=== PATIENT | male | born 1980 | race Caucasian/White ===

== ENCOUNTER 2021-04-30 13:00 | Outpatient (CLI) | payer OTHER ==
--- NOTE | 2021-04-30 21:25 | SLEEP CARE CONSULTATION ---
Information from patient questionnaire entered by Halley Maloney MA. I have reviewed and concur with the information entered by Halley Maloney MA. This document represents the service I personally performed and the decisions made by me, Azucena Steel MD, [facility]. History of Present Illness Service Date and Time: 04/30/2021 1300 Reason for Visit: New patient (ONSET 03/2019, NO PRIORS,) Chief Complaint: reports: Unrefreshed sleep, Snoring, Observed pauses in breathing, Fatigue, Frequent awakenings at night, Other Date of Onset: SEVERAL YEARS Usual bedtime: 900 PM Time it takes to fall asleep: 30 60 MINUTES Snores at night: Yes Observed to quit breathing while asleep: Yes Sleeps alone due to snoring: Yes (SOMETIMES) Number of times waking at night: 3-5 TIMES Reasons for waking at night: reports: Pain, Bathroom, Other Toss, Turn, or Twitch while sleeping: Yes Recalls having dreams: No Usually gets out of bed at: [id number] Feels refreshed in the morning: No Morning headache: Yes (MID MORNING) Sleepy or fatigued during the day: Yes Ever fallen asleep while driving: No Takes day naps: No Dreams during day naps: No Prior sleep studies: No Additional HPI information: I had the pleasure of seeing Mr. Saleh today regarding the possibility of him having a sleep disorder. As you know, he is a 40-year-old gentleman who complains of loud snore, observed apneas, unrefreshed sleep, frequent awakenings, and persistent fatigue for the past several years. The patient tells me that he normally goes to bed around 9 pm, and it takes him approximately 30 - 60 minutes to fall asleep. He has been told that he snores loudly and irregularly at night. He has also been observed to stop breathing in his sleep. His occasionally has to sleep in a separate room. He can re call waking up on the average of 4 - 5 times during the night. Most of the time he wakes up because of having to use the bathroom and pain. He has awakened occasionally because of his own snoring, choking, and having to gasp for air. There is a lot of tossing and turning in his sleep. No somniloquy (sleep talking) or somnambulism (sleep walking). Generally, there is no recollection of dreams. In the morning he usually gets up out of the bed around 4 - 5 a.m. not feeling refreshed nor rested. He usually does have a morning headache that goes away by mid-morning. During the day he complains of feeling sleepy and fatigued. His score on [place] Sleepiness Scale is 4 out of 24. He never has fallen asleep while driving nor has had any accident due to sleepiness. He usually does not take naps during the day. Upon falling asleep during the day he denies having vivid dreams. He has never had sleep paralysis, experienced cataplexy or symptoms of restless leg syndrome. He denies having impaired concentration during the day. - Parasomnia Symptoms Ever been unable to move upon waking from sleep: No Walks in sleep: No Talks in sleep: No Ever acted out dreams in sleep: No Ever felt weak in the knees when startled or emotional: No Bothered by creepy, crawly, restless sensations in legs: No Problems with memory or concentration: No Subjective Initial [place] Sleepiness Scale score: 4 (2021) Past Medical History Past Medical History: reports: Hypertension Social History The patient's occupation is a [employer]. Patient is and lives in [place]. Have you smoked in the past 12 months: Yes Cigarettes per day (20/pack): 6 Years of smokin Smoking Pack Years: 5.7 Alcohol use: Yes Alcohol amount and frequency: 3-4 X WEEKLY Caffeine use: Yes Caffeine amount and frequency: 1 X DAILY Family History Family history of sleep disordered breathing: Yes Family Hx Sleep Apnea: Mother: Snoring, Sleep apnea - Untreated Allergies and Home Medications Known drug allergies: No Drug allergies reviewed: Yes Home medication list reviewed: Yes Allergy and home medication list: Allergies No Known Drug Allergies Allergy (Verified 10/26/14 16:29) Review of Systems Cardiovascular: reports: high blood pressure Respiratory: denies: shortness of breath, wheeze, sputum production, chronic cough, other Gastrointestinal: denies: heartburn, difficulty swallowing, nausea, vomitting, diarrhea, abdominal pain, other Urinary: denies: incontinence, frequency, urgency, impotence, other Neurological: reports: headaches Psychiatric: denies: Attention Deficit Hyperactivity, anxiety, depression, mood disorder, claustrophobia, other Ear/Nose/Throat: reports: dry mouth/throat Endocrine: denies: thyroid disease, history of goiter, sluggishness, too hot or cold, excessive thirst, increased appetite, increased urination, unexplained weakness, other Musculoskeletal: reports: joint pain Immunologic: denies: sneezing, rash, itching, allergies to food or environment, other Physical Exam Vital signs obtained and entered by: Jonatan MALONEY CMA [facility] Blood Pressure: 133/75 (RIGHT, PULSE 78, RESP 16,) Cuff size: wrist Heart Rate: 80 (BEING MONITORED FOR HYPERTENSION.) O2 Saturation: 98 (WITH CLOTH MASK) Height: 6 ft 1 in Weight: 279 lb Body Mass Index: 36.8 BMI Classification: Obese Mood/affect: normal HEENT: No craniofacial malformation Nostrils: patent to airflow Turbinates: normal Septum: midline Mouth and throat: narrow oropharynx Soft palate: long Hard palate: normal Uvula: normal Uvula visualization: 50% Mallampati Class II Tongue: enlarged in size with teeth brown on lateral edges Tonsils: small Chin and jaw: normal size and position Neck: normal w/o lymphadenopathy or thyromegaly Impression and Plan IMPRESSION: 1. Obstructive Sleep Apnea-Hypopnea Syndrome, as suggested by history of loud and irregular snoring, observed cessation of breath while asleep, frequent awakenings during the night, unrefreshed sleep, morning headache, and daytime hypersomnolence. Narrow oropharynx and obesity are common predisposing factors for obstructive sleep apnea-hypopnea syndrome. Untreated obstructive sleep apnea can also cause hypertension. I recommend proceeding to polysomnography to confirm the diagnosis and to assess severity. If he has significant sleep disordered breathing, a manual CPAP titration study will also be performed to find the optimal treatment pressure. I informed the patient of what the sleep studies involve and after some discussion, he agreed to proceed. Plan: 1. Schedule polysomnography + manual CPAP titration study and return in 1 to 2 weeks after the study to discuss result and initiate therapy. 2. Avoid long distance driving or when feeling sleepy. 3. Avoid alcohol, sedative and muscle relaxant around bedtime. 4. Attempt to lose weight. Follow up with Sleep Care in: 1-2 months Visit Type: In Office Time Spent with Patient (minutes): 15 Provider Statement: I spent 100% of the Face to Face Visit with the patient with greater than 50% spent counseling the patient and coordination of care.
[2021-04-30 21:26] VITALS: BP 133/75
== END 2021-04-30 13:01 | disposition home or self-care (01) ==
LOC: SC 13:00
PROVIDERS: ATTEND Internal Medicine Pulmonary Disease
DX: R06.83 Snoring (principal); G47.8 Other sleep disorders; R51.9 Headache, unspecified; G47.10 Hypersomnia, unspecified; R06.81 Apnea, not elsewhere classified; R41.89 Other symptoms and signs involving cognitive functions and awareness; E66.9 Obesity, unspecified; Z68.36 Body mass index [BMI] 36.0-36.9, adult
CPT/HCPCS: 99202; 99212

== ENCOUNTER 2021-05-09 12:21 | Outpatient (CLI) | payer OTHER | END 2021-05-09 12:22 | disposition home or self-care (01) | LOC: SC 12:21 | PROVIDERS: ATTEND Nurse Practitioner Family | DX: G47.33 Obstructive sleep apnea (adult) (pediatric) (principal); R09.02 Hypoxemia | CPT/HCPCS: 95806 ==

== ENCOUNTER 2021-05-21 13:02 | Outpatient (CLI) | payer OTHER ==
[2021-05-21 13:45] VITALS: BP 129/74
--- NOTE | 2021-05-21 13:45 | SLEEP CARE CONSULTATION ---
Information from patient questionnaire entered by Halley Stern MA. I have reviewed and concur with the information entered by Halley Stern MA. This document represents the service I personally performed and the decisions made by me, Azucena Steel MD, [facility]. History of Present Illness Service Date and Time: 05/21/2021 1302 Initial [place] Sleepiness Scale score: 4 (2021) Current [place] Sleepiness Scale score: 8 (2021) Additional HPI information: HPI: Mr. Sheriff returned for follow up of the sleep study he had on 05/09/2021. The polysomnography showed that mild obstructive sleep apnea-hypopnea, with an AHI of 9.6/hr and gonzalez SaO2 of 79%. During the study, the patient had 18 apneas (18 obstructive, 0 central, 0 mixed) and 57 hypopneas. The longest episode lasted 135.0 seconds. The patient did not sleep supine during this study (supine AHI was 0.0 and non-supine, 9.63). Hypoxemia was moderate, with the lowest oxygen saturation of 79 % and 138.6 minutes with SaO2 under 90%. Baseline oxygen saturation was normal (Average oxygen saturation was 91%). The patient was informed of these findings. I explained to him the pathophysiology behind obstructive sleep apnea. We then spent quite a bit of time discussing different treatment options. For mild obstructive sleep apnea, surgery and oral appliance are alternatives to nasal CPAP therapy but in moderate or severe cases, nasal CPAP is the most effective and reliable treatment. Weight loss in an obese individual is strongly recommended. After some discussion, he opted to go with the nasal CPAP therapy. I explained to him how CPAP machine works and what to expect when using the machine. He is encouraged to use CPAP every night especially in the first 2 to 3 nights in order to get used to it. He should call his CPAP supplier or me to discuss any mechanical problem that may occur. If he snores or feels like he is not getting enough air from the machine, he should notify me and I will increase the pressure. Sleep Study - Results Type of Sleep Study: Home sleep study (F/U HOME STUDY) Prior sleep studies: No Allergies and Home Medications Drug allergies reviewed: Yes Home medication list reviewed: Yes Allergy and home medication list: Allergies No Known Drug Allergies Allergy (Verified 10/26/14 16:29) Review of Systems Review of systems same as previous: Yes Physical Exam Vital signs obtained and entered by: BRYANT RAMOS Blood Pressure: 129/74 (LEFT, PULSE 120, RESP 18, ) Cuff size: wrist Heart Rate: 106 O2 Saturation: 98 (PAPERMASK) Height: 6 ft 1 in Weight: 279 lb (FULL INIFORM AND BOOTS) Body Mass Index: 36.8 BMI Classification: Obese Neck circumference: 18.5 (INCHES) Impression and Plan IMPRESSION: 1. Obstructive Sleep Apnea-Hypopnea Syndrome, mild, associated with moderate hypoxemia. Possibly, this is the cause of the patients symptoms of unrefreshed sleep, morning headache, and excessive daytime sleepiness. As mentioned above, the patient will be started on an autoCPAP set between 5 and 15 cmH2O. Depending on his response and compliance he may be brought back for an overnight CPAP titration study. PLAN: 1. Prescription made for an autoCPAP, heated humidifier, and related supplies. 2. Attempt to lose weight and avoid alcohol consumption near bedtime. 3. The patient is again cautioned about driving until his sleepiness completely resolves on the CPAP therapy. 4. Return for follow up after one month of using the CPAP. Prescriptions: Auto CPAP Follow up with Sleep Care in: 1-2 months Visit Type: In Office Time Spent with Patient (minutes): 15 Provider Statement: I spent 100% of the Face to Face Visit with the patient with greater than 50% spent counseling the patient and coordination of care.
== END 2021-05-21 13:03 | disposition home or self-care (01) ==
LOC: SC 13:02
PROVIDERS: ATTEND Internal Medicine Pulmonary Disease
DX: G47.33 Obstructive sleep apnea (adult) (pediatric) (principal); E66.9 Obesity, unspecified; Z68.36 Body mass index [BMI] 36.0-36.9, adult
CPT/HCPCS: 99212

== ENCOUNTER 2021-07-10 05:20 | Outpatient (CLI) | payer OTHER ==
--- NOTE | 2021-07-10 09:18 | SLEEP CARE CONSULTATION ---
Information from patient questionnaire entered by Kita Delacruz. I have reviewed and concur with the information entered by Kita Delacruz. This document represents the service I personally performed and the decisions made by , Lucrecia Haro ARNP. History of Present Illness Service Date and Time: 07/10/2021 0520 Previous diagnosis: Mild, Obstructive Sleep Apnea-Hypopnea Syndrome AHI: 9.6 (in 2021) Reason for follow up: first compliance (1ST COMPLIANCE 06/04, RESMED ) Equipment type: CPAP Equipment obtained from: Other ([facility]; got initial supplies) Mask style: Full face Mask brand: Respironics (Dreamwear) Backup mask available: No (will keep old mask when replaced) Prior sleep studies: No Type of Sleep Study: Home sleep study (F/U HOME STUDY) HPI additional information: GIANCARLO MARTEL was diagnosed to have mild, AHI 9.6, obstructive sleep apnea- hypopnea syndrome and returned today for CPAP therapy first compliance follow- up. Sleep Study - Results Type of Sleep Study: Home sleep study (F/U HOME STUDY) Prior sleep studies: No CPAP Compliance Data - Data Reviewed with Patient Average duration of nightly device use: 7 hours 17 minutes Compliance rate %: 97 (30 days) Current pressure setting (cmH2O): 5-15 (median 7.4, avg 11.1, max 12.8) Average residual AHI: 0.4 Central apnea: 0.0 Obstructive apnea: 0.2 Average large leak: 7.2 L/min Subjective Missed days of use due to: reports: travel Patient concerns: reports: other (dry lips). denies: aerophagia, mask discomfort, air blowing in eyes, mask leak noise, condensation in mask/hose, nasal congestion, dry mouth, nose, throat, epistaxis Observed to snore while using device: No Current pressure setting perceived as: comfortable On therapy, patient: reports: sleeping better, awakening more refreshed, being more awake and alert during the day, more rested overall, other (reduced night awakenings). denies: drowsiness while driving Initial [place] Sleepiness Scale score: 4 (2021) Current [place] Sleepiness Scale score: 4 Allergies and Home Medications Home medication list reviewed: Yes (no changes) Allergy and home medication list: Allergies No Known Drug Allergies Allergy (Verified 10/26/14 16:29) Review of Systems Review of systems same as previous: Yes (no changes) Physical Exam Vital signs obtained and entered by: Killian DELACRUZ MA Blood Pressure: 144/80 (MANUAL ) Cuff size: LARGE CUFF Heart Rate: 93 O2 Saturation: 98 Height: 6 ft 1 in Weight: 248 lb Body Mass Index: 32.7 BMI Classification: Obese Impression and Plan 1. Obstructive Sleep Apnea-Hypopnea Syndrome, mild, with good treatment compliance and good apnea control. On CPAP therapy, the patient has better sleep quality and is more rested overall. He is moving next month to [place] after retiring from the service. He was advised to establish with a sleep provider there for further follow up. He may follow up here before leaving area. He has been slowly getting used to his mask and states he notes daily incremental improvements with CPAP use. Patient's apnea severity and rationale for treatment to reduce apnea, improve sleep quality and reduce cardiovascular and cerebrovascular events was reviewed. I also reviewed the benefit of consistent device use of CPAP for hypertension. 2. Obesity, unspecified. Currently patients BMI is 32.7. Obesity increases the risk of apnea, CPAP pressure requirements and overall health risks especially cardiovascular and diabetes. Thus patient is advised to lose weight. Weight loss can be done with reducing portion size, reducing refined foods and balancing content with vegetables, fruit and whole grain foods. In addition, patient encouraged to get regular exercise. * Change auto CPAP pressure to 7-13 cmH2O * Notify me if snoring with mask or feeling that the pressure is too much or too little * Attempt to lose weight * Call this office if any problems using CPAP * Return for follow up in 1-2 months, or sooner if concerns arise Counseling Topics: Spare mask, Weight loss health impact Visit Type: In Office Time Spent with Patient (minutes): 26 Provider Statement: I spent 100% of the Face to Face Visit with the patient with greater than 50% spent counseling the patient and coordination of care.
[2021-07-10 09:19] VITALS: BP 144/80
== END 2021-07-10 05:21 | disposition home or self-care (01) ==
LOC: SC 05:20
PROVIDERS: ATTEND Nurse Practitioner Family
DX: G47.33 Obstructive sleep apnea (adult) (pediatric) (principal); E66.9 Obesity, unspecified; Z68.32 Body mass index [BMI] 32.0-32.9, adult
CPT/HCPCS: 99212; 99213